=== PATIENT | female | born 1985 ===

== ENCOUNTER 2018-06-15 10:55 | Emergency (ER) | payer MEDICAID, OTHER ==
[2018-06-15 11:00] VITALS: TEMP 98; O2SAT 100
[2018-06-15 11:01] VITALS: BMI 29.5
[2018-06-15] MEDS ORDERED: Sodium Chloride 0.9% 1,000 ML IV STA (11:18)
[2018-06-15] MEDS ORDERED: Oxycodone/Acetaminophen 5/325 mg Tab PO STA (11:44)
--- NOTE | 2018-06-15 11:59 | ED PDOC ---
HPI: Abdomen Time Seen by Provider: 06/15/18 11:08 Chief Complaint (Nursing): Abdominal Pain Chief Complaint (Provider): Right sided pelvic pain x 5 days History Per: Patient History/Exam Limitations: no limitations Onset/Duration Of Symptoms: Days Outside of [place] travel?: No Current Symptoms Are (Timing): Still Present Location Of Pain/Discomfort: Other (Right sided pelvic pain ) Associated Symptoms: denies: Fever, Chills, Nausea, Vomiting, Diarrhea, Loss Of Appetite, Constipation, Urinary Symptoms Additional Complaint(s): 33 yo female with no medical problems presents for evaluation of right sided pelvic pain for 5 days. PT was seen in [facility] 4 days ago for evaluation of the same pain, constant. Pt was admitted observation for elevated WBC. Pt has normal CT and pelvic US. Pt reports pain continuing. Pt has been taking Tramadol but states she is unable to sleep. No N/V/D. Tolerating PO. Pt. has appointment with GI Friday. Past Medical History Reviewed: Historical Data, Nursing Documentation, Vital Signs Vital Signs: Last Vital Signs Temp 98 F 06/15/18 10:58 Pulse 80 06/15/18 10:58 Resp 20 06/15/18 10:58 BP 125/77 06/15/18 10:58 Pulse Ox 100 06/15/18 12:01 - Medical History PMH: Migraine Denies: Chronic Kidney Disease - Surgical History Surgical History: Endoscopy, Tonsillectomy - Family History Family History: States: No Known Family Hx - Home Medications Home Medications: Ambulatory Orders Medication Instructions Recorded Ondansetron HCl [Zofran] 4 mg PO Q6H PRN #12 tablet 06/13/18 levoFLOXacin [Levaquin] 500 mg PO DAILY #5 tab 06/13/18 traMADol [Ultram] 25 mg PO TID PRN #12 tab 06/13/18 oxyCODONE/Acetaminophen [Percocet 1 ea PO Q6H PRN #15 tab 06/15/18 5/325 mg Tab] - Allergies Allergies/Adverse Reactions: Allergies Allergy/AdvReac Type Severity Reaction Status Date / Time NSAIDS (Non-Steroidal AdvReac SHORTNESS Verified 06/11/18 13:24 Anti-Inflamma OF BREATH Review of Systems ROS Statement: Except As Marked, All Systems Reviewed And Found Negative Constitutional: Negative for: Fever, Chills Cardiovascular: Negative for: Chest Pain, Palpitations Respiratory: Negative for: Cough Gastrointestinal: Positive for: Abdominal Pain. Negative for: Nausea, Vomiting , Diarrhea, Melena, Rectal Pain Physical Exam - Reviewed Nursing Documentation Reviewed: Yes Vital Signs Reviewed: Yes - Physical Exam Appears: Positive for: Well, Non-toxic, No Acute Distress Head Exam: Positive for: ATRAUMATIC, NORMAL INSPECTION, NORMOCEPHALIC Skin: Positive for: Normal Color, Warm, DRY Eye Exam: Positive for: Normal appearance ENT: Positive for: Normal ENT Inspection Neck: Positive for: Normal, Painless ROM Cardiovascular/Chest: Positive for: Regular Rate, Rhythm Respiratory: Positive for: Normal Breath Sounds. Negative for: Accessory Muscle Use, Respiratory Distress Gastrointestinal/Abdominal: Positive for: Soft, Tenderness (right sided pelvic pain). Negative for: Normal Exam Back: Positive for: Normal Inspection Extremity: Positive for: Normal ROM Neurologic/Psych: Positive for: Alert, Oriented - Laboratory Results Result Diagrams: 06/15/18 12:00 06/15/18 12:00 - ECG O2 Sat by Pulse Oximetry: 100 Medical Decision Making Medical Decision Making: Previous US and CT reviewed. Pt reports improvement in pain after percocet. No fever/chills. Tolerating PO. Improvement in WBC since previous. Disposition - Clinical Impression Clinical Impression: Abdominal pain - Patient ED Disposition Is Patient to be Admitted: No Counseled Patient/Family Regarding: Diagnosis, Need For Followup, Rx Given - Disposition Referrals: Alberto Savage MD [Family Provider] - Disposition: Routine/Home Disposition Time: 13:13 Condition: STABLE Prescriptions: oxyCODONE/Acetaminophen [Percocet 5/325 mg Tab] 1 ea PO Q6H PRN #15 tab PRN Reason: Pain, Severe (8-10) Instructions: Acute Abdomen (Belly Pain) Forms: [employer] (Eritrean) Print Language: PERSIAN
[2018-06-15] MEDS ORDERED: Oxycodone/Acetaminophen 5/325 mg Tab ONE (12:10)
[2018-06-15 12:11] LABS: BASO # 0.1 K/uL (0.0-0.2); BASO % 0.4 % (0.0-2.0); EOS % 0.1 % (0.0-4.0); HEMOGLOBIN 12.6 g/dL (12.0-16.0); LYMPH # 3.3 K/uL (1.0-4.3); LYMPH % 21.5 % (20.0-40.0); MEAN CORPUSCULAR HEMOGLOBIN 28.6 pg (27.0-31.0); MEAN CORPUSCULAR HGB CONC 32.8 g/dL (33.0-37.0); MEAN PLATELET VOLUME 8.8 fl (7.2-11.7); MONO # 1.4 K/uL (0.0-0.8); MONO % 8.9 % (0.0-10.0); NEUT # 10.7 K/uL (1.8-7.0); NEUT % 69.1 % (50.0-75.0); RBC 4.42 Mil/uL (3.80-5.20); RED CELL DISTRIBUTION WIDTH 13.6 % (11.5-14.5); WHITE BLOOD COUNT 15.5 K/uL (4.8-10.8)
[2018-06-15 12:17] LABS: ALB/GLOB RATIO 1.2 (1.0-2.1); ALBUMIN 4.3 g/dL (3.5-5.0); ALT/SGPT 25 U/L (9-52); AST/SGOT 28 U/L (14-36); BLOOD UREA NITROGEN 11 mg/dl (7-17); CALCIUM 9.5 mg/dL (8.4-10.2); GFR NON-AFRICAN AMERICAN > 60
[2018-06-15 14:44] VITALS: BP 123/70; PULSE 76; RESP 18
== END 2018-06-15 14:40 | disposition home or self-care (01) ==
LOC: H.ER 10:55
DX: R10.2 Pelvic and perineal pain (principal); D72.829 Elevated white blood cell count, unspecified
CPT/HCPCS: 80053; 81025; 85025; 87491; 87591; 99284; J7030

== ENCOUNTER 2018-06-19 17:59 | Emergency (ER) | payer MEDICAID ==
[2018-06-19 17:59] VITALS: BMI 29.5
[2018-06-19 18:42] VITALS: PULSE 75; RESP 16; TEMP 98.6; O2SAT 99
[2018-06-19] MEDS ORDERED: Sodium Chloride 0.9% 1,000 ML IV STA (20:40)
[2018-06-19] MEDS ORDERED: Morphine 4 MG/ML VIAL ONE (21:48)
--- NOTE | 2018-06-19 21:51 | ED PDOC ---
HPI: Abdomen Time Seen by Provider: 06/19/18 20:20 Chief Complaint (Nursing): Abdominal Pain Chief Complaint (Provider): pelvic pain History Per: Patient History/Exam Limitations: no limitations Onset/Duration Of Symptoms: Days (10) Location Of Pain/Discomfort: Suprapubic Quality Of Discomfort: "Pain" Associated Symptoms: denies: Fever, Chills, Nausea, Vomiting Exacerbating Factors: Movement Alleviating Factors: None Additional Complaint(s): Pt with 10 days for pelvic pain. She was seen and admitted to [facility] and discharged with pain medications, at that time found to have large fibroids. She presented to this ER for the same pain and given additional pain medication. She then followed up at [facility] today. She was told to come to this ER to be seen by Dr Navarro contour grinder OB. She started to have her period today. Used 2 pad so far. PMD: [facility] Past Medical History Reviewed: Historical Data, Nursing Documentation, Vital Signs Vital Signs: Last Vital Signs Temp 98.6 F 06/19/18 18:39 Pulse 75 06/19/18 18:39 Resp 16 06/19/18 18:39 BP 110/70 06/19/18 22:00 Pulse Ox 99 06/19/18 22:19 - Medical History PMH: Migraine Denies: Chronic Kidney Disease Other PMH: Fibroid - Surgical History Surgical History: Endoscopy, Tonsillectomy - Family History Family History: States: No Known Family Hx - Home Medications Home Medications: Ambulatory Orders Medication Instructions Recorded Ondansetron HCl [Zofran] 4 mg PO Q6H PRN #12 tablet 06/13/18 levoFLOXacin [Levaquin] 500 mg PO DAILY #5 tab 06/13/18 traMADol [Ultram] 25 mg PO TID PRN #12 tab 06/13/18 oxyCODONE/Acetaminophen [Percocet 1 ea PO Q6H PRN #15 tab 06/15/18 5/325 mg Tab] - Allergies Allergies/Adverse Reactions: Allergies Allergy/AdvReac Type Severity Reaction Status Date / Time NSAIDS (Non-Steroidal AdvReac SHORTNESS Verified 06/11/18 13:24 Anti-Inflamma OF BREATH Review of Systems ROS Statement: Except As Marked, All Systems Reviewed And Found Negative (and as per HPI) Genitourinary Female: Positive for: Vaginal Bleeding Physical Exam - Reviewed Nursing Documentation Reviewed: Yes Vital Signs Reviewed: Yes - Physical Exam Appears: Positive for: Non-toxic, In Acute Distress Head Exam: Positive for: ATRAUMATIC, NORMOCEPHALIC Gastrointestinal/Abdominal: Positive for: Soft, Tenderness (suprapubic). Negative for: Mass, Distended, Guarding, Rebound - ECG O2 Sat by Pulse Oximetry: 99 - Progress ED Course And Treament: Reviewed previous charts. Pt has workup 4 days ago with normal labs. KARLA casey. He was called about the patient and advised to them at that time to have pt [facility], but he did not specifically instruct that the patient be sent to ER for his evaluation. We reviewed patient's clinical presentation and he advised that there is no emergent gynecologic issue and that patient should have pain controlled and then follow up at clinic. KARLA pt plan of care. Pt refusing to have morphine for pain control. She reports that she attempted to make an appointment at clinic and was told she had to wait 2-3 weeks for next appointment. Upset that OB will not come down to evaluate for need for hysterectomy. Explained to patient there is no need for an emergent hysterectomy and will give notice through family practice residents to alert central scheduling to have her appointment prioritized. Disposition - Clinical Impression Clinical Impression: Fibroids - Disposition [facility] Disposition: Routine/Home Disposition Time: 22:00 Condition: STABLE Additional Instructions: [facility]. Instructions: Uterine Fibroids Print Language: MOROCC[place]
[2018-06-19 22:00] VITALS: BP 110/70
== END 2018-06-19 21:59 | disposition home or self-care (01) ==
LOC: H.ER 17:59
DX: D25.9 Leiomyoma of uterus, unspecified (principal)